=== PATIENT | female | born 1950 | race Caucasian/White ===

== ENCOUNTER → 2023-06-06 | Outpatient (CLI) | payer MEDICARE | LOC: RAD 11:35 | PROVIDERS: ATTEND Surgery | DX: Z53.9 Procedure and treatment not carried out, unspecified reason (principal) ==

== ENCOUNTER → 2023-06-06 | Outpatient (CLI) | payer MEDICARE ==
[~2023-06-06] MED LIST: CATHETER FLUSH 10 ML SYR IVP PRN
--- NOTE | 2023-06-06 14:56 | Diagnostic Imaging Report ---
Indication: Diarrhea. Patient was administered 5.3 mCi technetium 99m Choletec and imaging over the abdomen was performed. At 45 minutes patient ingested 8 ounces of ensure and the gallbladder ejection fraction was calculated. Patient denied discomfort during the study. There is homogeneous uptake of activity by the liver with prompt excretion of activity into the common duct and gallbladder. There is passage of activity into the small bowel. Gallbladder ejection fraction is normal at 65%. IMPRESSION: Normal HIDA scan and gallbladder ejection fraction. Dictated by: Dictated on workstation # [id number]
== END ==
LOC: CARD 11:45
PROVIDERS: ATTEND Surgery
DX: K82.4 Cholesterolosis of gallbladder (principal)
CPT/HCPCS: 78227; A9537